=== PATIENT | female | born 1980 | race Caucasian/White ===

== ENCOUNTER 2020-09-15 06:18 | Day surgery (SDC) | payer OTHER, SELFPAY ==
[~2020-09-15] VITALS: Ht 160 cm; Wt 80.3 kg
[2020-09-15] MEDS ORDERED: MIDAZOLAM 5 MG/5 ML VIAL ONE (08:07)
[2020-09-15] MEDS ORDERED: diphenhydrAMINE 50 MG/ML VIAL ONE (08:07)
[2020-09-15] MEDS ORDERED: fentaNYL citrate 0.05 MG/ML VIAL ONE (08:07)
[2020-09-15] MEDS ORDERED: fentaNYL citrate 0.05 MG/ML VIAL IVP ONE (09:35)
[2020-09-15] MEDS ORDERED: MIDAZOLAM 2 MG/2 ML VIAL IVP ONE (09:35)
== END 2020-09-15 09:44 | disposition home or self-care (01) ==
LOC: MDS 06:18 → MMU 06:19 → MDS 09:44
PROVIDERS: ATTEND Internal Medicine Gastroenterology
DX: K21.9 Gastro-esophageal reflux disease without esophagitis (principal); K29.50 Unspecified chronic gastritis without bleeding; E11.9 Type 2 diabetes mellitus without complications; E03.9 Hypothyroidism, unspecified; F32.9 Major depressive disorder, single episode, unspecified; E66.9 Obesity, unspecified; Z68.31 Body mass index [BMI] 31.0-31.9, adult; Z79.84 Long term (current) use of oral hypoglycemic drugs; Z79.899 Other long term (current) drug therapy; Z20.822 Contact with and (suspected) exposure to COVID-19
CPT/HCPCS: 43239; 81025; 88305; 88312; 88313; 88342; J2250; J3010; U0003; J1200